=== PATIENT | male | born 1965 | race Caucasian/White ===

== ENCOUNTER 2020-12-12 20:41 | Emergency (ER) | payer BC ==
[~2020-12-12] VITALS: Ht 175.3 cm; Wt 109.8 kg
[2020-12-12] MEDS ORDERED: PROAIR HFA8.5 GM INH (22:32)
[2020-12-12] MEDS ORDERED: MUCINEX1200 MG PO (22:32)
== END 2020-12-12 23:30 | disposition home or self-care (01) ==
LOC: ER1 20:41
DX: Z23 Encounter for immunization (principal); U07.1 COVID-19; E11.9 Type 2 diabetes mellitus without complications; I10 Essential (primary) hypertension; Z88.6 Allergy status to analgesic agent
CPT/HCPCS: 99284; M0243